=== PATIENT | male | born 1965 | race Two or more races ===

== ENCOUNTER 2024-01-18 10:22 | Emergency (ER) | payer MEDICAID, SELFPAY ==
[2024-01-18 10:45] VITALS: BP 142/86; PULSE 100; RESP 19; TEMP 36.8; O2SAT 94; BMI 24.8
--- NOTE | 2024-01-18 10:52 | XR_ITS ---
Examination: Ultrasound-guided paracentesis Abdominal sonogram limited Date and time of exam: January 18, 2024 1257 hours INDICATIONS: Cirrhosis, increasing ascites and abdominal distention this week Informed consent provided. A timeout was completed verifying correct patient, procedure, site, positioning, and special adequate movement if applicable. Technique: Multiple sonographic images of the abdomen have been obtained. Appropriate area for paracentesis was marked. Local anesthesia is obtained with 1% lidocaine. Yueh catheter is successfully introduced. Findings: Abdominal sonographic images demonstrate sufficient ascitic fluid for paracentesis. After placing the Yueh catheter, 8400 cc of fluid were successfully removed. During and after completion of the procedure the patient appear in satisfactory and stable condition with no complications observed. Estimated blood loss 0 cc Impression: Abdominal ascites Successful ultrasound-guided paracentesis as described above
[2024-01-18] MEDS: ALBUMIN HUMAN 25% IVPB 12.5 GM/50 ML BTL IV ×2 (14:33→15:16)
--- NOTE | 2024-01-18 15:10 | EDNOTE_ITS ---
ED General RME/HPI General Chief complaint: General Adult/Misc Complain Stated complaint: RETAINING A LOT OF FLUID Time Seen by Provider: 01/18/24 10:49 Arrival date/time: 01/18/24 10:22 58-year-old male with cirrhosis and ascites presents to the emergency department requesting paracentesis. Patient reports no fever nausea or vomiting does report distention patient reports no other complaints and only wants a paracentesis today Limitations: no limitations Related Data Allergies Allergy/AdvReac Type Severity Reaction Status Date / Time No Known Allergies Allergy Verified 01/18/24 10:25 Review of Systems Review of Systems Systems Reviewed: All systems reviewed, normal except as documented Constitutional Constitutional: Reports system reviewed and no additional complaints, except as documented, Denies fever(s) and Denies headache(s) Eyes Eyes: Reports system reviewed and no additional complaints, except as documented and Denies blurry vision ENT Ears, Nose, Mouth, and Throat: Reports system reviewed and no additional complaints, except as documented, Denies headache(s), Denies nasal congestion and Denies nasal discharge Cardiovascular Cardiovascular: Reports system reviewed and no additional complaints, except as documented, Denies chest pain and Denies dyspnea Respiratory Respiratory: Reports system reviewed and no additional complaints, except as documented, Denies chest congestion, Denies cough and Denies dyspnea Gastrointestinal Gastrointestinal: Reports system reviewed and no additional complaints, except as documented, Reports abdominal pain and Reports other (Abdominal distention) Integumentary/Breasts Skin/Breast: Reports system reviewed and no additional complaints, except as documented and Denies rash Neurologic Neurologic: Reports system reviewed and no additional complaints, except as documented, Reports as per HPI and Denies headache(s) Past Medical History Past Medical History NEUROLOGIC: Negative Neurological Disorders CARDIAC: Negative Cardiac Disorders ED Exam General Limitations: Present no limitations General appearance: Present alert and in no apparent distress Head Head exam: Present atraumatic Eye Eye exam: Present normal appearance, PERRL and EOMI; Absent conjunctival injection ENT ENT exam: Present normal exam, normal oropharynx and mucous membranes moist Neck Neck exam: Present normal inspection, full ROM and trachea midline Chest Chest inspection: Present normal inspection and symmetric chest wall rise Respiratory Respiratory exam: Present normal lung sounds bilaterally; Absent respiratory distress or wheezes Cardiovascular Cardiovascular exam: Present regular rate, normal rhythm and normal heart sounds Abdominal Exam Abdominal exam: Present soft, distention, tenderness, normal bowel sounds and ascites; Absent guarding, rebound or rigidity Extremities Exam Extremities exam: Present normal inspection, full ROM and pedal edema Back Exam Back exam: Present normal inspection and full ROM Neurological Exam Neurological exam: Present alert, oriented X3 and CN II-XII intact Psychiatric Psychiatric exam: Present normal affect and normal mood Skin Skin exam: Present warm, dry, intact and normal color Course Quality Measures none Orders Category Date Time Status Insert IV NOW Care 01/18/24 14:05 Completed US paracentesis abd w/image Stat Exams 01/18/24 10:52 Completed Albumin Human 25% Ivpb [Albuminar-25 Ivpb] Med 01/18/24 14:05 Discontinued 12.5 gm in 50 ml IV X1 Albumin Human 25% Ivpb [Albuminar-25 Ivpb] Med 01/18/24 14:05 Discontinued 12.5 gm in 50 ml IV X1 Lidocaine 1% Pf 30 ml [Xylocaine 1% Pf 30 ml] Med 01/18/24 12:57 Discontinued 30 ml .ROUTE .STK-MED ONE Vital Signs Vital signs: Vital Signs Temperature 98.2 F 01/18/24 10:45 Pulse Rate 100 01/18/24 10:45 Respiratory Rate 19 01/18/24 10:45 Blood Pressure 142/86 H 01/18/24 10:45 Pulse Oximetry (%) 94 L 01/18/24 10:45 Oxygen Delivery Method Room Air 01/18/24 10:45 O2 saturation 94% room air [facility] Patient data External records reviewed:: [facility] previous records Clinical information provided by:: patient Social determinants that could affect healthcare access:: none Patient has the following chronic illnesses:: None How is presenting disease/condition affected by chronic disease/condition?: no chronic disease Evaluation data The following diagnostics were reviewed and interpreted by me:: radiology exam(s) Lab and/or radiology exams considered but not ordered:: Radiology obtain Interpretation Summary: Reviewed by me Medications Medications considered but not ordered:: Given Medication administrations:: Medication Administration History Discontinued Medications Albumin Human (Albuminar-25 Ivpb) 12.5 gm in 50 mls @ 50 mls/hr IV X1 ONE Stop: 01/18/24 15:04 Last Infusion: 01/18/24 15:16 Dose: Infused Documented By: Admin: 01/18/24 14:33 Dose: 50 mls/hr Documented By: MEL Albumin Human (Albuminar-25 Ivpb) 12.5 gm in 50 mls @ 50 mls/hr IV X1 ONE Stop: 01/18/24 15:04 Last Infusion: 01/18/24 16:58 Dose: Infused Documented By: Admin: 01/18/24 15:16 Dose: 50 mls/hr Documented By: MEL Lidocaine HCl (Lidocaine Inj Pf 1% 30 Ml Vial) Confirm Administered Dose 30 ml .ROUTE .STK-MED ONE Stop: 01/18/24 12:58 Last Admin: 01/18/24 16:58 Dose: Not Given Documented By: JOELLEN Non-Admin Reason: Duplicate Medication on eMAR Given Consultations Consultation(s) initiated? (list below): No Diagnosis Differential Diagnosis ED Complaint MDM: Ascites, cirrhosis Most likely diagnosis given after review of the tests above:: Ascites, cirrhosis Admission Indicated Admission indicated?: not indicated Explain why admission is indicated or not indicated:: No criteria Admission Request Was there a request for admission?: No Disposition Plan Disposition Plan: Discharge Discharge Attestation Discharge Attestation: The patient and all family members were given an opportunity to ask questions and understood the discharge instructions. Discharge instructions specifically effects, indications for sooner follow up or return to the emergency department, and the expected course of current diagnosis. Patient condition: Stable Medical Decision Making MDM Narrative MDM Narrative: 58-year-old male with cirrhosis and ascites presents to the emergency department requesting paracentesis. Patient reports no fever nausea or vomiting does report distention patient reports no other complaints and only wants a paracentesis today I reviewed patient's labs and previous visit which was 01/03 with his last paracentesis Paracentesis completed Patient was given albumin x 2 Patient discharged home in no distress to follow-up with primary care doctor in the next 24 to 48 hours and for any worsening symptoms to return to the ER immediately Differential Diagnosis Differential Diagnosis: Ascites, cirrhosis Medical Records Medical records reviewed: Yes I reviewed the patient's medical records. Lab Data Lab results reviewed: Yes I reviewed the patient's lab results. Radiology Data Radiology results reviewed: Yes I reviewed the patient's radiology results. Discharge Plan Plan Patient Disposition: HOME (Self Care) Disposition Comment: Stable Problem List Clinical Impression: Ascites, S/P abdominal paracentesis Patient/Caregiver Discharge Instructions Education Materials: Paracentesis Dc Additional Instructions: Please follow up with your primary care doctor in the next 24-48hrs for any worsening symptoms return here immediately Print Language: Indonesian Stand Alone Forms: Sejal Award Info., Patient Portal Info Letter PA/APPLIANCE SERVICE SUPERVISOR Supervising Physician PA/APPLIANCE SERVICE SUPERVISOR Supervising Physician: Dr kam
[2024-01-18 16:58] VITALS: BP 140/82; PULSE 98; RESP 20; TEMP 36.7; O2SAT 96
== END 2024-01-18 17:02 | disposition home or self-care (01) ==
PROVIDERS: Emergency Provider Emergency Medicine; PCP Family Medicine
DX: K74.60 Unspecified cirrhosis of liver (principal); R18.8 Other ascites
CPT/HCPCS: 49083; 96365; 96366; 96367; 99284; C1729; P9047

== ENCOUNTER 2024-01-28 20:14 | Emergency (ER) | payer MEDICAID, SELFPAY ==
[2024-01-28 20:15] VITALS: BMI 31.1
[2024-01-28 20:32] VITALS: BP 138/82; PULSE 108; RESP 18; TEMP 37.1; O2SAT 96
--- NOTE | 2024-01-28 21:04 | EDNOTE_ITS ---
ED Abdominal Pain RME/HPI General Chief Complaint: Abdominal Pain Stated complaint: FLUID RETENTION Time seen by provider: 01/28/24 20:53 Arrival date/time: 01/28/24 20:14 59M with history of cirrhosis presents to ED requesting paracentesis. Patient had one 10 days ago here. Limitations: no limitations Related Data Allergies Allergy/AdvReac Type Severity Reaction Status Date / Time No Known Allergies Allergy Verified 01/18/24 10:25 Review of Systems Review of Systems Systems Reviewed: All systems reviewed, normal except as documented Constitutional Constitutional: Reports system reviewed and no additional complaints, except as documented, Denies fever(s) and Denies headache(s) ENT Ears, Nose, Mouth, and Throat: Denies disequilibrium and Denies headache(s) Cardiovascular Cardiovascular: Reports system reviewed and no additional complaints, except as documented, Denies chest pain and Denies dyspnea Respiratory Respiratory: Reports system reviewed and no additional complaints, except as documented, Denies cough and Denies dyspnea Gastrointestinal Gastrointestinal: Reports system reviewed and no additional complaints, except as documented, Reports as per HPI, Denies abdominal pain, Reports bloating, Denies nausea and Denies vomiting Neurologic Neurologic: Reports system reviewed and no additional complaints, except as documented, Denies confusion, Denies disequilibrium and Denies headache(s) Psychiatric Psychiatric: Denies confusion Past Medical History Past Medical History NEUROLOGIC: Negative Neurological Disorders CARDIAC: Positive Hypertension (no meds); Negative Cardiac Disorders or Congestive Heart Failure RESPIRATORY: Negative Chronic Obstructive Pulmonary Disease (COPD) GASTROINTESTINAL: Positive Cirrhosis GENITOURINARY: Negative Renal Disease ENDOCRINE: Negative Diabetes Mellitus Type 1 or Diabetes Mellitus Type 2 Social History SMOKING STATUS: Former smoker ED Exam General Limitations: Present no limitations General appearance: Present alert and in no apparent distress Head Head exam: Present atraumatic Eye Eye exam: Present normal appearance, PERRL and EOMI ENT ENT exam: Present normal exam, normal oropharynx and mucous membranes moist Neck Neck exam: Present normal inspection, full ROM and trachea midline Chest Chest inspection: Present normal inspection and symmetric chest wall rise Respiratory Respiratory exam: Present normal lung sounds bilaterally Cardiovascular Cardiovascular exam: Present regular rate, normal rhythm and normal heart sounds Abdominal Exam Abdominal exam: Present soft, distention and normal bowel sounds Extremities Exam Extremities exam: Present normal inspection and full ROM Back Exam Back exam: Present normal inspection and full ROM Neurological Exam Neurological exam: Present alert, oriented X3 and CN II-XII intact Psychiatric Psychiatric exam: Present normal affect and normal mood Skin Skin exam: Present warm, dry, intact and normal color Course Quality Measures none Vital Signs Vital signs: Vital Signs Temperature 98.7 F 01/28/24 20:32 Pulse Rate 108 H 01/28/24 20:32 Respiratory Rate 18 01/28/24 20:32 Blood Pressure 138/82 H 01/28/24 20:32 Pulse Oximetry (%) 96 01/28/24 20:32 Oxygen Delivery Method Room Air 01/28/24 20:32 O2 at 96% on RA and WNLs Abdominal Pain MDM MDM Narrative MDM Narrative:: 59M with history of cirrhosis presents to ED requesting paracentesis. Patient had one 10 days ago here. Physical exam reveals no ab tenderness, but ab is distended. Patient is afebrile, calm, and alert. Broadband Technician given. No para until Wednesday. Patient data External records reviewed:: [facility] previous records Clinical information provided by:: patient Social determinants that could affect healthcare access:: none Patient has the following chronic illnesses:: cirrhosis How is presenting disease/condition affected by chronic disease/condition?: caused by Evaluation data The following diagnostics were reviewed and interpreted by me:: other (specify) (none) Lab and/or radiology exams considered but not ordered:: not ordered Interpretation Summary: n/a Medications / Prescriptions Medications or Prescriptions considered but not ordered:: not ordered Medication administrations:: n/a Consultations Consultation(s) initiated? (list below): No Diagnosis Differential diagnosis abdominal pain: abdominal pain, acute appendicitis, calculus of kidney, constipation, diverticulitis, gastroenteritis, pancreatitis, small bowel obstruction and other (ascites) Most likely diagnosis given after review of the tests above:: ascites Admission Indicated Admission indicated?: not indicated Admission Request Was there a request for admission?: No Disposition Plan Disposition Plan: Discharge Discharge Attestation Discharge Attestation: The patient and all family members were given an opportunity to ask questions and understood the discharge instructions. Discharge instructions specifically effects, indications for sooner follow up or return to the emergency department, and the expected course of current diagnosis. Patient condition: Stable Discharge Plan Plan Patient Disposition: HOME (Self Care) Disposition Comment: Stable Prescriptions/Referrals Referrals: Dorian Ayala MD [Primary Care Provider] - In 1 week Problem List Clinical Impression: Ascites Patient/Caregiver Discharge Instructions Additional Instructions: Please follow-up with PCP within 24-48 hours and return immediately if symptoms worsen. Para is available M-F 8 AM - 1 PM. Print Language: Wolof Stand Alone Forms: Patient Portal Info Letter PA/LODGE ATTENDANT Supervising Physician ROSSANA/BRAD Supervising Physician: Dr. Green
== END 2024-01-28 20:56 | disposition home or self-care (01) ==
PROVIDERS: Emergency Provider Emergency Medicine; PCP Family Medicine
DX: K74.60 Unspecified cirrhosis of liver (principal); R18.8 Other ascites
CPT/HCPCS: 99281

== ENCOUNTER 2024-01-31 08:34 | Emergency (ER) | payer MEDICAID, SELFPAY ==
[2024-01-31 08:35] VITALS: BMI 29.2
[2024-01-31 08:41] VITALS: BP 115/81; PULSE 100; RESP 19; TEMP 36.6; O2SAT 93
--- NOTE | 2024-01-31 08:41 | XR_ITS ---
Examination: Ultrasound-guided paracentesis Abdominal sonogram limited Date and time of exam: January 31, 2024 1005 hours INDICATIONS: Cirrhosis, increasing ascites and abdominal distention this week Informed consent provided. A timeout was completed verifying correct patient, procedure, site, positioning, and special adequate movement if applicable. Technique: Multiple sonographic images of the abdomen have been obtained. Appropriate area for paracentesis was marked. Local anesthesia is obtained with 1% lidocaine. Yueh catheter is successfully introduced. Findings: Abdominal sonographic images demonstrate sufficient ascitic fluid for paracentesis. After placing the Yueh catheter, 9,900 cc of fluid were successfully removed. During and after completion of the procedure the patient appear in satisfactory and stable condition with no complications observed. Estimated blood loss 0 cc Impression: Abdominal ascites Successful ultrasound-guided paracentesis as described above
[2024-01-31 09:22] LABS: Basophils % (Auto) 0 % (0-2.5); Eosinophils # (Auto) 0.1 Thou/mm3 (0.0-0.5); Eosinophils % (Auto) 1 % (0-10); Hematocrit 34.3 % (41.0-53.0); Hemoglobin 12.5 g/dL (13.5-16.0); Immature Granulocytes % (Auto) 1 % (0-0); Immature Granulocytes Auto 0.08 Thou/mm3 (0.00-0.00); Lymphocytes # (Auto) 1.9 Thou/mm3 (1.0-4.8); Lymphocytes % (Auto) 18 % (10-50); Mean Corpuscular HGB Conc 36.4 g/dl (31.0-37.0); Mean Corpuscular Hemoglobin 36.8 pg (25.0-35.0); Mean Corpuscular Volume 101 fL (80-100); Monocytes # (Auto) 1.5 Thou/mm3 (0.0-0.8); Monocytes % (Auto) 14 % (0-12); Neutrophils % (Auto) 66 % (37-80); Nucleated Red Blood Cell % 0 /100 WBC (0); Platelet Count 164 Thou/mm3 (140-440); RDW Standard Deviation 46.1 fL (35.1-43.9); White Blood Count 10.5 Thou/mm3 (3.8-10.6)
[2024-01-31 09:42] LABS: Alanine Aminotransferase 25 U/L (10-49); Albumin, Serum 2.6 gm/dL (3.4-4.8); Albumin/Globulin Ratio 0.5 (1.2-2.2); Alkaline Phosphatase 177 U/L (46-116); Anion Gap 8 (7-16); Aspartate Amino Transferase 63 U/L (0-34); BUN/Creatinine Ratio 18 Ratio (12-20); Bilirubin,Total 5.3 mg/dL (0.3-1.2); Blood Urea Nitrogen 30 mg/dL (9-23); Calcium 8.7 mg/dL (8.3-10.6); Calcium (Corrected) 9.8 mg/dL (8.5-10.1); Carbon Dioxide 29.9 mMol/L (20.0-31.0); Chloride 90 mMol/L (98-107); Creatinine (Component) 1.7 mg/dL (0.6-1.3); Estimated Creatinine Clearance 36.9 mL/min (>60); Glucose 124 mg/dL (74-106); Osmolality,Calculated 264 (275-295); Potassium 2.9 mMol/L (3.4-5.1); Sodium 128 mMol/L (136-145); Total Protein 7.6 gm/dL (5.7-8.2); eGFR 45 See Note
[2024-01-31 09:44] LABS: INR 1.2 (0.9-1.3); Partial Thromboplastin Time 32.7 Seconds (22.0-36.0); Prothrombin Time 13.4 Seconds (9.0-12.2)
--- NOTE | 2024-01-31 12:02 | PD.EDADULT ---
ED General RME/HPI General Chief complaint: General Adult/Misc Complain Stated complaint: need a paracentesis Time Seen by Provider: 01/31/24 08:40 Arrival date/time: 01/31/24 08:34 59-year-old male with cirrhosis and ascites presents to the emergency department requesting paracentesis patient reports no chest pain no shortness of breath no headache dizziness or weakness patient request no other services at this time Limitations: no limitations Related Data Previous Rx's ?Medication ?Instructions ?Recorded potassium chloride 20 mEq 20 meq PO QDAY 3 days #3 tabs 01/31/24 tablet,extended release Allergies Allergy/AdvReac Type Severity Reaction Status Date / Time No Known Allergies Allergy Verified 01/18/24 10:25 Review of Systems Review of Systems Systems Reviewed: All systems reviewed, normal except as documented Constitutional Constitutional: Reports system reviewed and no additional complaints, except as documented, Denies fever(s) and Denies headache(s) Eyes Eyes: Reports system reviewed and no additional complaints, except as documented and Denies blurry vision ENT Ears, Nose, Mouth, and Throat: Reports system reviewed and no additional complaints, except as documented, Denies headache(s), Denies nasal congestion and Denies nasal discharge Cardiovascular Cardiovascular: Reports system reviewed and no additional complaints, except as documented, Denies chest pain and Denies dyspnea Respiratory Respiratory: Reports system reviewed and no additional complaints, except as documented, Denies chest congestion, Denies cough and Denies dyspnea Gastrointestinal Gastrointestinal: Reports system reviewed and no additional complaints, except as documented, Denies abdominal pain, Reports bloating, Denies loose stools, Denies nausea and Denies vomiting Integumentary/Breasts Skin/Breast: Reports system reviewed and no additional complaints, except as documented and Denies rash Neurologic Neurologic: Reports system reviewed and no additional complaints, except as documented, Reports as per HPI and Denies headache(s) Past Medical History Past Medical History NEUROLOGIC: Negative Neurological Disorders CARDIAC: Positive Hypertension; Negative Cardiac Disorders or Congestive Heart Failure RESPIRATORY: Negative Chronic Obstructive Pulmonary Disease (COPD) GASTROINTESTINAL: Positive Cirrhosis GENITOURINARY: Negative Renal Disease ENDOCRINE: Negative Diabetes Mellitus Type 1 or Diabetes Mellitus Type 2 Social History SMOKING STATUS: Former smoker ED Exam General Limitations: Present no limitations General appearance: Present alert and in no apparent distress Head Head exam: Present atraumatic Eye Eye exam: Present normal appearance, PERRL and EOMI ENT ENT exam: Present normal exam, normal oropharynx and mucous membranes moist Neck Neck exam: Present normal inspection, full ROM and trachea midline Chest Chest inspection: Present normal inspection and symmetric chest wall rise Respiratory Respiratory exam: Present normal lung sounds bilaterally Cardiovascular Cardiovascular exam: Present regular rate, normal rhythm and normal heart sounds Abdominal Exam Abdominal exam: Present soft, distention and normal bowel sounds Extremities Exam Extremities exam: Present normal inspection and full ROM Back Exam Back exam: Present normal inspection and full ROM Neurological Exam Neurological exam: Present alert, oriented X3 and CN II-XII intact Psychiatric Psychiatric exam: Present normal affect and normal mood Skin Skin exam: Present warm, dry, intact and normal color Course Quality Measures none Orders Category Date Time Status Insert IV NOW Care 01/31/24 11:57 Completed US paracentesis abd w/image Stat Exams 01/31/24 08:41 Completed CBC Stat Lab 01/31/24 09:05 Completed Comprehensive Metabolic Panel Stat Lab 01/31/24 09:05 Completed Partial Thromboplastin Time Stat Lab 01/31/24 09:05 Completed Prothrombin Time with INR Stat Lab 01/31/24 09:05 Completed Albumin Human 25% Ivpb [Albuminar-25 Ivpb] Med 01/31/24 11:57 Discontinued 12.5 gm in 50 ml IV X1 Albumin Human 25% Ivpb [Albuminar-25 Ivpb] Med 01/31/24 11:57 Discontinued 12.5 gm in 50 ml IV X1 Lidocaine 1% Pf 30 ml [Xylocaine 1% Pf 30 ml] Med 01/31/24 10:05 Discontinued 30 ml .ROUTE .STK-MED ONE Potassium Chloride [K-Dur] Med 01/31/24 10:14 Discontinued 40 meq PO X1 ONE Sodium Chloride 0.9% 500 ml [Ns] 500 ml Med 01/31/24 12:02 Discontinued IV 999 mls/hr Vital Signs Vital signs: Vital Signs Temperature 97.8 F 01/31/24 08:41 Pulse Rate 100 01/31/24 08:41 Respiratory Rate 19 01/31/24 08:41 Blood Pressure 115/81 01/31/24 08:41 Pulse Oximetry (%) 93 L 01/31/24 08:41 Oxygen Delivery Method Room Air 01/31/24 08:41 O2 saturation 94% room air [facility] Patient data External records reviewed:: [facility] previous records Clinical information provided by:: patient Social determinants that could affect healthcare access:: alcohol use Patient has the following chronic illnesses:: See history How is presenting disease/condition affected by chronic disease/condition?: caused by Evaluation data The following diagnostics were reviewed and interpreted by me:: lab results and radiology exam(s) Lab and/or radiology exams considered but not ordered:: Labs radiology obtained Interpretation Summary: Reviewed by me Medications Medications considered but not ordered:: Given Medication administrations:: Medication Administration History Discontinued Medications Albumin Human (Albuminar-25 Ivpb) 12.5 gm in 50 mls @ 50 mls/hr IV X1 ONE Stop: 01/31/24 12:56 Last Infusion: 01/31/24 13:45 Dose: Infused Documented By: [facility] Admin: 01/31/24 13:07 Dose: 50 mls/hr Documented By: NESS Albumin Human (Albuminar-25 Ivpb) 12.5 gm in 50 mls @ 50 mls/hr IV X1 ONE Stop: 01/31/24 12:56 Last Infusion: 01/31/24 14:58 Dose: Infused Documented By: Admin: 01/31/24 13:46 Dose: 50 mls/hr Documented By: Meli Sodium Chloride (Ns) 500 mls @ 999 mls/hr IV .Q31M ONE Stop: 01/31/24 12:32 Last Infusion: 01/31/24 13:00 Dose: Infused Documented By: Admin: 01/31/24 12:22 Dose: 999 mls/hr Documented By: NESS Lidocaine HCl (Lidocaine Inj Pf 1% 30 Ml Vial) Confirm Administered Dose 30 ml .ROUTE .STK-MED ONE Stop: 01/31/24 10:06 Last Admin: 01/31/24 13:03 Dose: 30 ml Documented By: NESS Comments: given by radiology Potassium Chloride (Potassium Chloride 20 Meq Tabcr) 40 meq PO X1 ONE Stop: 01/31/24 10:15 Last Admin: 01/31/24 12:09 Dose: 40 meq Documented By: NESS Given Consultations Consultation(s) initiated? (list below): No Diagnosis Differential Diagnosis ED Complaint MDM: Cirrhosis, ascites, abdominal pain Most likely diagnosis given after review of the tests above:: Cirrhosis, ascites, hypokalemia Admission Indicated Admission indicated?: not indicated Explain why admission is indicated or not indicated:: No criteria Admission Request Was there a request for admission?: No Disposition Plan Disposition Plan: Discharge Discharge Attestation Discharge Attestation: The patient and all family members were given an opportunity to ask questions and understood the discharge instructions. Discharge instructions specifically effects, indications for sooner follow up or return to the emergency department, and the expected course of current diagnosis. Patient condition: Stable Medical Decision Making MDM Narrative MDM Narrative: 59-year-old male with cirrhosis and ascites presents to the emergency department requesting paracentesis patient reports no chest pain no shortness of breath no headache dizziness or weakness patient request no other services at this time Lab work and ultrasound obtained Lab work patient does have hypokalemia patient given a dose of potassium here discharge home with 3 days of potassium Patient given 2 doses of albumin as well as 500 mL bolus normal saline I did talk to the patient about his lab work explained that his kidney function has worsened Explained to the patient he must follow-up with his primary care doctor for further evaluation for worsening symptoms return immediately Time of discharge patient reports no chest pain or shortness of breath reports feeling significantly better after his paracentesis Patient discharged home in no distress to follow-up with primary care doctor in the next 24 to 48 hours and for any worsening symptoms to return to the ER immediately Differential Diagnosis Differential Diagnosis: Cirrhosis, ascites, abdominal pain Medical Records Medical records reviewed: Yes I reviewed the patient's medical records. Lab Data Lab results reviewed: Yes I reviewed the patient's lab results. 01/31/24 09:05 01/31/24 09:05 Labs: Lab Results 01/31/24 Range/Units 09:05 WBC 10.5 (3.8-10.6) Thou/mm3 RBC 3.40 L (4.50-5.90) Miln/mm3 Hgb 12.5 L (13.5-16.0) g/dL Hct 34.3 L (41.0-53.0) % MCV 101 H (80-100) fL MCH 36.8 H (25.0-35.0) pg MCHC 36.4 (31.0-37.0) g/dl RDW Std Deviation 46.1 H (35.1-43.9) fL Plt Count 164 (140-440) Thou/mm3 Neut % (Auto) 66 (37-80) % Lymph % (Auto) 18 (10-50) % [place] % (Auto) 14 H (0-12) % Eos % (Auto) 1 (0-10) % Baso % (Auto) 0 (0-2.5) % Neut # (Auto) 7.0 (1.8-7.7) Thou/mm3 Lymph # (Auto) 1.9 (1.0-4.8) Thou/mm3 [place] # (Auto) 1.5 H (0.0-0.8) Thou/mm3 Eos # (Auto) 0.1 (0.0-0.5) Thou/mm3 Baso # (Auto) 0.0 (0.0-0.2) Thou/mm3 Immature Gran # (Auto) 0.08 H (0.00-0.00) Thou/mm3 Absolute Nucleated RBC 0.00 (0.00-0.00) Thou/mm3 Immature Gran % 1 H (0-0) % Nucleated RBC % 0 (0) /100 WBC PT 13.4 H (9.0-12.2) Seconds INR 1.2 (0.9-1.3) APTT 32.7 (22.0-36.0) Seconds Sodium 128 L (136-145) mMol/L Potassium 2.9 L (3.4-5.1) mMol/L Chloride 90 L (98-107) mMol/L Carbon Dioxide 29.9 (20.0-31.0) mMol/L Anion Gap 8 (7-16) BUN 30 H (9-23) mg/dL Creatinine 1.7 H (0.6-1.3) mg/dL Estim Creat Clear Calc 36.9 L (>60) mL/min eGFR 45 L (60 - ) See Note BUN/Creatinine Ratio 18 (12-20) Ratio Glucose 124 H (74-106) mg/dL Calculated Osmolality 264 L (275-295) Calcium 8.7 (8.3-10.6) mg/dL Corrected Calcium 9.8 (8.5-10.1) mg/dL Total Bilirubin 5.3 H (0.3-1.2) mg/dL AST 63 H (0-34) U/L ALT 25 (10-49) U/L Alkaline Phosphatase 177 H (46-116) U/L Total Protein 7.6 (5.7-8.2) gm/dL Albumin 2.6 L (3.4-4.8) gm/dL Globulin 5.0 H (2.3-3.5) gm/dL Albumin/Globulin Ratio 0.5 L (1.2-2.2) Radiology Data Radiology results reviewed: Yes I reviewed the patient's radiology results. Discharge Plan Plan Patient Disposition: HOME (Self Care) Disposition Comment: Stable Prescriptions/Referrals Prescriptions/Med Rec: New potassium chloride 20 mEq tablet extended release 20 meq PO QDAY 3 Days Qty: 3 0RF Referrals: Dorian Ayala MD [Primary Care Provider] - Problem List Clinical Impression: Ascites, Hypokalemia Patient/Caregiver Discharge Instructions Education Materials: Paracentesis Additional Instructions: Please follow up with your primary care doctor in the next 24-48hrs for any worsening symptoms return here immediately Print Language: Welsh Stand Alone Forms: Sejal Award Info., Patient Portal Info Letter Attestation Attestation The patient was seen by the midlevel practitioner. I, the co-signing physician, was present during the entire ER visit. While I did not physically examine the patient, I was available for consultation as needed.
[2024-01-31] MEDS: POTASSIUM CHLORIDE 20 mEq TABCR 40 MEQ PO (12:09)
[2024-01-31] MEDS: SODIUM CHLORIDE 0.9% 500 ML 500 ML 999 ML IV (12:22)
[2024-01-31 12:28] VITALS: BP 103/54; PULSE 87; RESP 22; TEMP 36.6; O2SAT 94
[2024-01-31] MEDS: LIDOCAINE INJ PF 1% 30 ML VIAL (13:03)
[2024-01-31] MEDS: ALBUMIN HUMAN 25% IVPB 12.5 GM/50 ML BTL IV ×2 (13:07→13:46)
[2024-01-31 14:13] VITALS: BP 101/73; PULSE 88; RESP 15; TEMP 36.5; O2SAT 94
[2024-01-31 15:30] VITALS: BP 107/74; PULSE 86; RESP 18; O2SAT 92
== END 2024-01-31 15:50 | disposition home or self-care (01) ==
PROVIDERS: Nurse Practitioner Primary Care; Emergency Provider Emergency Medicine; PCP Family Medicine
DX: K74.60 Unspecified cirrhosis of liver (principal); R18.8 Other ascites; E87.6 Hypokalemia; I10 Essential (primary) hypertension; Z87.891 Personal history of nicotine dependence
CPT/HCPCS: 49083; 36415; 80053; 85025; 85610; 85730; 96361; 96365; 96367; 99284; C1729; J3490; J7040; P9047; A9270

== ENCOUNTER 2024-02-11 08:20 | Emergency (ER) | payer SELFPAY ==
[2024-02-11 08:27] VITALS: BP 129/84; PULSE 98; RESP 21; TEMP 36.7; O2SAT 95; BMI 24.2
--- NOTE | 2024-02-11 08:39 | XR_ITS ---
Examination: Ultrasound-guided paracentesis Abdominal sonogram limited Date and time of exam: February 11, 2024 2137 hours INDICATIONS: Cirrhosis, increasing ascites and abdominal distention this week Informed consent provided. A timeout was completed verifying correct patient, procedure, site, positioning, and special adequate movement if applicable. Technique: Multiple sonographic images of the abdomen have been obtained. Appropriate area for paracentesis was marked. Local anesthesia is obtained with 1% lidocaine. Yueh catheter is successfully introduced. Findings: Abdominal sonographic images demonstrate sufficient ascitic fluid for paracentesis. After placing the Yueh catheter, 9,500 cc of fluid were successfully removed. During and after completion of the procedure the patient appear in satisfactory and stable condition with no complications observed. Estimated blood loss 0 cc Impression: Abdominal ascites Successful ultrasound-guided paracentesis as described above
--- NOTE | 2024-02-11 11:44 | EDNOTE_ITS ---
ED General RME/HPI General Chief complaint: General Adult/Misc Complain Stated complaint: retaining liquid in stomach Time Seen by Provider: 02/11/24 08:36 Arrival date/time: 02/11/24 08:20 59-year-old male with liver cirrhosis presents emergency department today requesting paracentesis patient reports no chest pain or shortness of breath patient also shares that he had some constipation but did have a bowel movement yesterday Limitations: no limitations Related Data Previous Rx's ?Medication ?Instructions ?Recorded docusate sodium 100 mg capsule 100 mg PO BID 7 days #14 caps 02/11/24 polyethylene glycol 3350 17 17 g PO QDAY 3 days #119 grams 02/11/24 gram/dose oral powder (Miralax) Allergies Allergy/AdvReac Type Severity Reaction Status Date / Time No Known Allergies Allergy Verified 02/11/24 08:22 Review of Systems Review of Systems Systems Reviewed: All systems reviewed, normal except as documented Constitutional Constitutional: Reports system reviewed and no additional complaints, except as documented, Denies fever(s) and Denies headache(s) Eyes Eyes: Reports system reviewed and no additional complaints, except as documented and Denies blurry vision ENT Ears, Nose, Mouth, and Throat: Reports system reviewed and no additional complaints, except as documented, Denies headache(s), Denies nasal congestion and Denies nasal discharge Cardiovascular Cardiovascular: Reports system reviewed and no additional complaints, except as documented, Denies chest pain and Denies dyspnea Respiratory Respiratory: Reports system reviewed and no additional complaints, except as documented, Denies chest congestion, Denies cough and Denies dyspnea Gastrointestinal Gastrointestinal: Reports system reviewed and no additional complaints, except as documented and Reports abdominal pain Integumentary/Breasts Skin/Breast: Reports system reviewed and no additional complaints, except as documented and Denies rash Neurologic Neurologic: Reports system reviewed and no additional complaints, except as documented, Reports as per HPI and Denies headache(s) Past Medical History Past Medical History NEUROLOGIC: Negative Neurological Disorders CARDIAC: Positive Hypertension; Negative Cardiac Disorders or Congestive Heart Failure RESPIRATORY: Negative Chronic Obstructive Pulmonary Disease (COPD) GASTROINTESTINAL: Positive Cirrhosis GENITOURINARY: Negative Renal Disease ENDOCRINE: Negative Diabetes Mellitus Type 1 or Diabetes Mellitus Type 2 Social History SMOKING STATUS: Never smoker ED Exam General Limitations: Present no limitations General appearance: Present alert and in no apparent distress Head Head exam: Present atraumatic Eye Eye exam: Present normal appearance, PERRL and EOMI ENT ENT exam: Present normal exam, normal oropharynx and mucous membranes moist Neck Neck exam: Present normal inspection, full ROM and trachea midline Chest Chest inspection: Present normal inspection and symmetric chest wall rise Respiratory Respiratory exam: Present normal lung sounds bilaterally Cardiovascular Cardiovascular exam: Present regular rate, normal rhythm and normal heart sounds Abdominal Exam Abdominal exam: Present soft, distention, normal bowel sounds and ascites; Absent tenderness, guarding, rebound or rigidity Extremities Exam Extremities exam: Present normal inspection and full ROM Back Exam Back exam: Present normal inspection and full ROM Neurological Exam Neurological exam: Present alert, oriented X3 and CN II-XII intact Psychiatric Psychiatric exam: Present normal affect and normal mood Skin Skin exam: Present warm, dry, intact and normal color Course Quality Measures none Orders Category Date Time Status Insert IV NOW Care 02/11/24 11:44 Active US paracentesis abd w/image Stat Exams 02/11/24 08:39 Completed Albumin Human 25% Ivpb [Albuminar-25 Ivpb] Med 02/11/24 11:44 Discontinued 12.5 gm in 50 ml IV X1 Albumin Human 25% Ivpb [Albuminar-25 Ivpb] Med 02/11/24 11:44 Discontinued 12.5 gm in 50 ml IV X1 Docusate Sod [Colace] Med 02/11/24 08:39 Discontinued 200 mg PO X1 ONE Lidocaine 1% Pf 30 ml [Xylocaine 1% Pf 30 ml] Med 02/11/24 09:00 Discontinued 30 ml .ROUTE .STK-MED ONE Vital Signs Vital signs: Vital Signs Temperature 98.0 F 02/11/24 08:27 Pulse Rate 98 02/11/24 08:27 Respiratory Rate 21 H 02/11/24 08:27 Blood Pressure 129/84 02/11/24 08:27 Pulse Oximetry (%) 95 02/11/24 08:27 Oxygen Delivery Method Room Air 02/11/24 08:27 O2 saturation 95% room air within the limits MDM Patient data External records reviewed:: [facility] previous records Clinical information provided by:: patient Social determinants that could affect healthcare access:: none Patient has the following chronic illnesses:: See history How is presenting disease/condition affected by chronic disease/condition?: caused by Evaluation data The following diagnostics were reviewed and interpreted by me:: radiology exam(s) Lab and/or radiology exams considered but not ordered:: Radiology obtained Interpretation Summary: By me Medications Medications considered but not ordered:: Given Medication administrations:: Medication Administration History Discontinued Medications Docusate Sodium (Docusate Sod 100 Mg Capsule) 200 mg PO X1 ONE; Protocol Stop: 02/11/24 08:40 Last Admin: 02/11/24 12:51 Dose: 200 mg Documented By: CONNIE Albumin Human (Albuminar-25 Ivpb) 12.5 gm in 50 mls @ 50 mls/hr IV X1 ONE Stop: 02/11/24 12:43 Last Infusion: 02/11/24 13:44 Dose: Infused Documented By: Admin: 02/11/24 13:20 Dose: 50 mls/hr Documented By: CONNIE Albumin Human (Albuminar-25 Ivpb) 12.5 gm in 50 mls @ 50 mls/hr IV X1 ONE Stop: 02/11/24 12:43 Last Admin: 02/11/24 13:45 Dose: 50 mls/hr Documented By: CONNIE Lidocaine HCl (Lidocaine Inj Pf 1% 30 Ml Vial) Confirm Administered Dose 30 ml .ROUTE .STK-MED ONE Stop: 02/11/24 09:01 Last Admin: 02/11/24 13:20 Dose: Not Given Documented By: CONNIE Non-Admin Reason: Duplicate Medication on eMAR Given Consultations Consultation(s) initiated? (list below): No Diagnosis Differential Diagnosis ED Complaint MDM: For paracentesis, cirrhosis, ascites, constipation Most likely diagnosis given after review of the tests above:: Counter for paracentesis Admission Indicated Admission indicated?: not indicated Explain why admission is indicated or not indicated:: No criteria Admission Request Was there a request for admission?: No Disposition Plan Disposition Plan: Discharge Discharge Attestation Discharge Attestation: The patient and all family members were given an opportunity to ask questions a nd understood the discharge instructions. Discharge instructions specifically effects, indications for sooner follow up or return to the emergency department, and the expected course of current diagnosis. Patient condition: Stable Medical Decision Making MDM Narrative MDM Narrative: 59-year-old male with liver cirrhosis presents emergency department today requesting paracentesis patient reports no chest pain or shortness of breath patient also shares that he had some constipation but did have a bowel movement yesterday On exam patient appears chronically ill but nontoxic Patient given docusate for his stool softener Patient given 2 bottles of albumin as the patient had 9500 mL ascitic fluid taken off Patient discharged home in no distress to follow-up with primary care doctor in the next 24 to 48 hours and for any worsening symptoms to return to the ER immediately Differential Diagnosis Differential Diagnosis: For paracentesis, cirrhosis, ascites, constipation Medical Records Medical records reviewed: Yes I reviewed the patient's medical records. Radiology Data Radiology results reviewed: Yes I reviewed the patient's radiology results. Discharge Plan Plan Patient Disposition: HOME (Self Care) Prescriptions/Referrals Prescriptions/Med Rec: New docusate sodium 100 mg capsule 100 mg PO BID 7 Days Qty: 14 0RF polyethylene glycol 3350 [Miralax] 17 gram/dose powder 17 g PO QDAY 3 Days Qty: 119 0RF Problem List Clinical Impression: Cirrhosis of liver, Ascites, Constipation Patient/Caregiver Discharge Instructions Education Materials: Paracentesis Dc Additional Instructions: Please follow up with your primary care doctor in the next 24-48hrs for any wor sening symptoms return here immediately Print Language: Danish Stand Alone Forms: Sejal Award Info., Patient Portal Info Letter PA/[employer] Supervising Physician PA/[employer] Supervising Physician: Dr. Lemus
[2024-02-11] MEDS: DOCUSATE SOD 100 MG CAPSULE 200 MG PO (12:51)
[2024-02-11] MEDS: ALBUMIN HUMAN 25% IVPB 12.5 GM/50 ML BTL IV ×2 (13:20→13:45)
== END 2024-02-11 15:10 | disposition home or self-care (01) ==
PROVIDERS: Emergency Provider Emergency Medicine; PCP Family Medicine
DX: K74.60 Unspecified cirrhosis of liver (principal); R18.8 Other ascites; K59.00 Constipation, unspecified
CPT/HCPCS: 49083; 96365; 96367; 99284; C1729; P9047; A9270